=== PATIENT | female | born 1970 | race Caucasian/White ===

== ENCOUNTER 2017-12-31 01:07 | Emergency (ER) | payer BC, OTHER ==
[~2017-12-31] VITALS: Ht 147.3 cm; Wt 56.7 kg
[~2017-12-31 01:07] MED LIST: ALBU90OI INH; AMOCLA875 PO; ASPI81CH PO; AZIT250 PO; BENZ100A PO; Bactrim Ds Tab1 EACH PO; CEPH500 PO; CLIN300 PO; CYCL10 PO; HYDACE5 PO; HYDACE5325 PO; HYDGUAL120 PO; IBUP600 PO; IBUP800 PO; LEVFLO250 PO; LORA10ER PO; METPRE4DP PO; NAPR500 PO; NEOPOLHCSU OT; Naprosyn500 MG PO; Norco 5-325 Ta1 EACH PO; OXYACE5T PO; PRODEXEL PO; PROM25 PO; Percocet 5-3251 EACH PO; RXALBOI INH; RXCODGUASY PO; RXCYCL10 PO; RXHYD5325 PO; RXNEOPOLHC AD; RXOXYACE PO; SULTRIDS PO; TRAM50 PO; TYLE; Ultram50 MG PO; Ventolin/Prove6.7 GM INH; Zofran8 MG PO
[2017-12-31] MEDS ORDERED: CYCL10 PO (01:56)
== END 2017-12-31 02:12 | disposition home or self-care (01) ==
LOC: ER 01:07
DX: I73.9 Peripheral vascular disease, unspecified (principal); F17.210 Nicotine dependence, cigarettes, uncomplicated; Z88.5 Allergy status to narcotic agent
CPT/HCPCS: 96372; 99283; J1885

== ENCOUNTER 2018-05-06 22:27 | Emergency (ER) | payer BC, OTHER ==
[~2018-05-06] VITALS: Ht 147.3 cm; Wt 54.4 kg
[2018-05-07] MEDS ORDERED: PROM25 PO (00:32)
[2018-05-07] MEDS ORDERED: IBUP600 PO (00:53)
[2018-05-07] MEDS ORDERED: CYCL10 PO (00:53)
[2018-05-07] MEDS ORDERED: Percocet 5-3251 EACH PO (00:53)
[2018-05-07] MEDS ORDERED: DEXA4 PO (00:53)
== END 2018-05-07 01:20 | disposition home or self-care (01) ==
LOC: ER 22:27
DX: M54.31 Sciatica, right side (principal); B34.9 Viral infection, unspecified; F17.210 Nicotine dependence, cigarettes, uncomplicated; Z88.5 Allergy status to narcotic agent
CPT/HCPCS: 96372; 99283-25; J1100; J1885

== ENCOUNTER 2019-10-07 17:00 | Emergency (ER) | payer SELFPAY ==
[~2019-10-07] VITALS: Ht 147.3 cm; Wt 45.4 kg
[~2019-10-07 17:00] MED LIST changes: +DEXA4 PO
[2019-10-07 18:50] LABS: BASOPHILS ABSOLUTE AUTO 0.12 K/mm3 (0.00-0.23); BASOPHILS PERCENT AUTO 1 % (0-2); EOSINOPHILS ABSOLUTE AUTO 0.15 K/mm3 (0.00-0.68); EOSINOPHILS PERCENT AUTO 1 % (0-6); Hematocrit 51.2 % (33.0-51.0); Hemoglobin 17.2 g/dL (11.5-16.0); IMMATURE GRAN ABSOLUTE AUTO 0.05 K/mm3 (0.00-0.10); IMMATURE GRAN PERCENT AUTO 0 % (0-1); LYMPHOCYTES ABSOLUTE AUTO 3.27 K/mm3 (0.84-5.20); LYMPHOCYTES PERCENT AUTO 24 % (21-46); MONOCYTES ABSOLUTE AUTO 0.72 K/mm3 (0.16-1.47); MONOCYTES PERCENT AUTO 5 % (4-13); Mean Corpuscular HGB 29.8 pg (26.0-34.0); Mean Corpuscular HGB Conc 33.6 g/dL (31.5-36.5); Mean Corpuscular Volume 89 fL (80-100); Mean Platelet Volume 11.9 fL (9.1-12.4); NEUTROPHILS ABSOLUTE AUTO 9.45 K/mm3 (1.96-9.15); NEUTROPHILS PERCENT AUTO 69 % (41-73); Platelet Count 358 K/mm3 (150-400); RDW Coefficient Variation 13.3 % (11.7-14.2); RDW Standard Deviation 43.5 fL (35.1-46.3); Red Blood Cell Count 5.77 M/mm3 (3.80-5.20); White Blood Cell Count 13.76 K/mm3 (4.00-11.30)
[2019-10-07 19:10] LABS: Alanine Aminotransfer (ALT/SGP 29 U/L (12-78); Albumin, Blood 4.4 g/dL (3.4-5.0); Albumin/Globulin Ratio 1.2 (0.8-1.8); Alk Phos 146 U/L (50-136); Anion Gap 8 mmol/L (6-16); Aspartate Aminotrans (AST/SGOT 16 U/L (12-37); Bilirubin, Total 0.4 mg/dL (0.1-1.0); Blood Urea Nitrogen 9 mg/dL (8-24); Bun/Creatinine Ratio 17.5 (12.0-20.0); CO2, Blood 23 mmol/L (21-32); Calcium, Blood 9.7 mg/dL (8.5-10.1); Chloride, Blood 105 mmol/L (98-108); Creatinine, Blood 0.51 mg/dL (0.40-1.00); Globulin, Blood 3.6 g/dL (2.2-4.0); Glomerular Filtration Rate >60 (60-); Glucose, Blood 94 mg/dL (70-99); Potassium, Blood 3.8 mmol/L (3.5-5.5); Sodium, Blood 136 mmol/L (136-145)
== END 2019-10-07 19:00 | disposition home or self-care (01) ==
LOC: ER 17:00
PROVIDERS: Physician Assistant
DX: R51 Headache (principal); F17.210 Nicotine dependence, cigarettes, uncomplicated
CPT/HCPCS: 70450; 80053; 85025; 99284-25

== ENCOUNTER 2020-10-09 20:02 | Emergency (ER) | payer BC ==
[~2020-10-09] VITALS: Ht 147.3 cm; Wt 47.6 kg
[2020-10-09] MEDS ORDERED: Vibramycin100 MG PO (21:24)
[2020-10-09] MEDS ORDERED: CEPH500 PO (21:24)
== END 2020-10-09 21:35 | disposition home or self-care (01) ==
LOC: ER 20:02
DX: H60.11 Cellulitis of right external ear (principal); F17.200 Nicotine dependence, unspecified, uncomplicated; Z88.5 Allergy status to narcotic agent
CPT/HCPCS: 99283; A9270

== ENCOUNTER 2022-06-11 13:23 | Emergency (ER) | payer SELFPAY ==
[~2022-06-11] VITALS: Ht 147.3 cm; Wt 47.6 kg
[~2022-06-11 13:23] MED LIST changes: +Vibramycin100 MG PO
[2022-06-11] MEDS ORDERED: NEOPOLHCSU BOTHEARS (13:48)
== END 2022-06-11 13:40 | disposition home or self-care (01) ==
LOC: ER 13:23
DX: H60.93 Unspecified otitis externa, bilateral (principal); F17.210 Nicotine dependence, cigarettes, uncomplicated; Z88.0 Allergy status to penicillin; Z88.5 Allergy status to narcotic agent
CPT/HCPCS: 99282

== ENCOUNTER 2023-06-10 16:15 | Emergency (ER) | payer SELFPAY ==
[~2023-06-10] VITALS: Ht 147.3 cm; Wt 47.6 kg
[~2023-06-10 16:15] MED LIST changes: +CODACE30 PO; +DOXY100 PO; +NEOPOLHCSU BOTHEARS
[2023-06-10 16:48] VITALS: BP 154/101
[2023-06-10] MEDS ORDERED: Ketorolac Tromethamine 30mg Vial IM ONE (18:35)
[2023-06-10] MEDS ORDERED: CYCL10 PO (18:37)
== END 2023-06-10 18:47 | disposition home or self-care (01) ==
LOC: ER 16:15
DX: M54.41 Lumbago with sciatica, right side (principal); G89.29 Other chronic pain; M92.219 Osteochondrosis (juvenile) of carpal lunate [Kienbock], unspecified hand; F17.200 Nicotine dependence, unspecified, uncomplicated; Z98.890 Other specified postprocedural states; Z88.0 Allergy status to penicillin; Z88.5 Allergy status to narcotic agent
CPT/HCPCS: 96372; 99282-25; J1885

== ENCOUNTER 2023-07-02 19:30 | Emergency (ER) | payer SELFPAY ==
[~2023-07-02] VITALS: Ht 147.3 cm; Wt 47.6 kg
[2023-07-02 19:58] VITALS: BP 162/109
== END 2023-07-02 21:00 | disposition home or self-care (01) ==
LOC: ER 19:30
DX: H66.92 Otitis media, unspecified, left ear (principal); Z88.0 Allergy status to penicillin; Z88.5 Allergy status to narcotic agent; Z79.899 Other long term (current) drug therapy; F17.210 Nicotine dependence, cigarettes, uncomplicated
CPT/HCPCS: 99282

== ENCOUNTER 2024-05-18 12:57 | Emergency (ER) | payer SELFPAY ==
[~2024-05-18] VITALS: Ht 147.3 cm; Wt 56.6 kg
[2024-05-18 13:02] VITALS: BP 124/87
[2024-05-18 13:31] LABS: CORONAVIRUS COVID-19 AG Negative (NEGATIVE); INFLUENZA A AG Negative (NEGATIVE); INFLUENZA B AG Negative (NEGATIVE)
[2024-05-18] MEDS ORDERED: ONDA4ODT MM (14:36)
[2024-05-18] MEDS ORDERED: Ondansetron 4 MG SoluTab SL ONE (14:40)
[2024-05-18] MEDS ORDERED: Acetaminophen 325 MG TABLET PO ONE (14:40)
== END 2024-05-18 14:55 | disposition home or self-care (01) ==
LOC: ER 12:57
PROVIDERS: Physician Assistant
DX: J06.9 Acute upper respiratory infection, unspecified (principal); F17.210 Nicotine dependence, cigarettes, uncomplicated; Z88.0 Allergy status to penicillin; Z88.5 Allergy status to narcotic agent; Z79.899 Other long term (current) drug therapy; Z59.89 Other problems related to housing and economic circumstances
CPT/HCPCS: 87428-QW; 99283; A9270

== ENCOUNTER 2024-09-04 14:53 | Emergency (ER) | payer SELFPAY ==
[~2024-09-04] VITALS: Ht 147.3 cm; Wt 52.2 kg
[~2024-09-04 14:53] MED LIST changes: +ONDA4ODT MM
[2024-09-04 14:55] VITALS: BP 123/91
[2024-09-04] MEDS ORDERED: Clindamycin HC150 MG PO (15:03)
[2024-09-04] MEDS ORDERED: Clindamycin HCl 150 MG Cap PO ONE (15:05)
== END 2024-09-04 15:29 | disposition home or self-care (01) ==
LOC: ER 14:53
DX: K04.7 Periapical abscess without sinus (principal); F17.210 Nicotine dependence, cigarettes, uncomplicated; Z88.0 Allergy status to penicillin; Z88.5 Allergy status to narcotic agent
CPT/HCPCS: 99282; A9270